=== PATIENT | female | born 1955 | race Caucasian/White ===

== ENCOUNTER 2023-10-07 02:56 | Emergency (ER) | payer MEDICARE ==
[~2023-10-07] VITALS: Ht 165.1 cm; Wt 72.7 kg
[2023-10-07 03:04] VITALS: TEMP 97.7
[2023-10-07] MEDS ORDERED: Morphine 10 MG/ML VIAL IM ONE (03:15)
[2023-10-07] MEDS ORDERED: NORCO 325 MG-51 TAB PO (04:08)
[2023-10-07 04:47] VITALS: BP 143/71; PULSE 81
== END 2023-10-07 04:51 | disposition home or self-care (01) ==
LOC: COL.ER 02:56
DX: S09.90XA Unspecified injury of head, initial encounter (principal); S20.212A Contusion of left front wall of thorax, initial encounter; V89.2XXA Person injured in unspecified motor-vehicle accident, traffic, initial encounter; Y92.410 Unspecified street and highway as the place of occurrence of the external cause
CPT/HCPCS: J2270